=== PATIENT | male | born 1995 | race Caucasian/White ===

== ENCOUNTER 2017-10-02 21:12 | Emergency (ER) | payer MEDICAID, SELFPAY ==
[2017-10-02 21:12] VITALS: BP 128/80; PULSE 62; RESP 16; TEMP 36.6; O2SAT 99; BMI 18.9
--- NOTE | 2017-10-02 22:55 | ED.VISSUMM ---
- ER Visit Summary Date of Service: 10/02/17 Chief Complaint: Abdominal pain History of Present Illness: The patient is a 22 M who presents with right upper quadrant abdominal pain that began today. Patient states the pain started in his right upper quadrant. Patient denies any radiation of the pain. Patient describes his pain as aching. Patient states pain is worse by drinking fluids. Patient did have some nausea and vomiting today. Patient denies any hematemesis or coffee-ground emesis. Patient denies any diarrhea or constipation. Patient denies any melena or hematochezia. Patient denies any dysuria or hematuria. Physical Examination: Vital signs are stable. Patient is afebrile. Patient is in no acute distress. Oral mucosa is pink and moist. Neck is supple. Trachea is midline. There is no JVD or lymphadenopathy noted. Heart was regular rate and rhythm. Lungs are clear and equal bilaterally. Abdomen is soft. Bowel sounds are normal. There is right upper quadrant and epigastric tenderness. There is no rebound or guarding noted. Cranial nerves II through XII are intact. There are no focal motor or sensory deficits noted. The remaining physical exam is within normal limits. Test Results: CBC and conference of metabolic profile were obtained were within normal limits. Lipase was normal. Emergency Department Course and Treatment: Patient was given a dose of Zofran and IV fluids here. Patient felt better on reevaluation. Patient was given a prescription for Zofran. Patient was instructed to follow-up with his primary care physician in 5-7 days. Patient understood and was agreeable with the plan. All questions were answered. Disposition: Discharged home Impression: Right upper quadrant abdominal pain This note was generated with [employer] dictation software. It may contain incorrect words, spelling, and punctuation that were not noted in review of the chart prior to signing ED Disposition - Plan for ED Patient: Disposition: Home or Assisted Living Chief Complaint: General Illness Diagnosis: Right upper quadrant abdominal pain of unknown etiology Instructions: ED Abdominal Pain Unkn Cause Prescriptions: Ondansetron [Zofran Odt] 4 mg PO Q8H PRN PRN #10 tab PRN Reason: Nausea Referrals: Care Physician,No Primary [Primary Care Provider] -
[2017-10-02] MEDS: 0.9% Normal Saline 1,000 ML 1000 ML IV (23:22)
[2017-10-02] MEDS: Ondansetron 4 MG/2 ML Vial IV (23:22)
[2017-10-02 23:39] LABS: AST(SGOT) 29 U/L (15-37); Absolute Lymphocyte Count 2.18 X10^3/ul (0.83-4.51); Absolute Neutrophil Count 6.8 X10^3/uL (2.0-7.7); Alanine Aminotransfer ALT/SGPT 30 U/L (16-61); Albumin, Serum 4.2 g/dL (3.2-5.0); Alkaline Phosphatase 112 U/L (45-117); Anion Gap 6 (5-15); BUN 12 mg/dL (7-18); BUN/Creat Ratio 13.3 RATIO (10-20); Basophil# 0.01 X10^3/uL; Basophil% 0.1 % (0-1); Calcium,Total 9.4 mg/dL (8.5-10.1); Chloride 109 mmol/L (98-107); EST Glomerular Filtration Rate 113 mL/min (>60); Eosinophil# 0.03 X10^3/uL; Eosinophils% 0.3 % (0-5); Est Glom Filt Rate - Afr Amer 136 mL/min (>60); Estimated Creatinine Clearance 109.82 ml/min; Globulin 4.4 g/dL (2.2-4.2); Glucose 84 mg/dL (74-106); Hematocrit 42.7 % (40-54); Hemoglobin 14.9 g/dl (13.0-16.5); Lipase 134 U/L (73-393); Lymphocyte # 2.18 X10^3/ul (4.0); Lymphocyte % 22.7 % (19-41); Mean Corp Hgb Conc 34.9 g/gl (32-36); Mean Platelet Vol. 10.4 fl (6.2-12.0); Monocyte# 0.59 X10^3/uL; Monocyte% 6.1 % (0-10); Neutrophil % 70.7 % (47-70); POSITIVE COUNT NO; POSITIVE DIFFERENTIAL NO; POSITIVE MORPHOLOGY NO; Platelet Count 164 K/mm3 (150-450); Protein, Total 8.6 g/dL (6.4-8.2); RBC Distribution Width CV 13.7 % (11.6-14.6); RBC Distribution Width SD 44.2 fl (35.1-43.9); Sodium Level 140 mmol/L (136-145); White Blood Count 9.6 K/mm3 (4.4-11.0)
[2017-10-03 02:22] VITALS: BP 122/82; PULSE 78; RESP 16; O2SAT 98
== END 2017-10-03 02:23 | disposition home or self-care (01) ==
PROVIDERS: Emergency Provider Emergency Medicine
DX: R10.11 Right upper quadrant pain (principal); R11.2 Nausea with vomiting, unspecified; R51 Headache; R68.83 Chills (without fever)
CPT/HCPCS: 80053; 83690; 85025; 96361; 96374; 99285; J7030; A4216; J2405

== ENCOUNTER 2020-06-11 12:51 | Emergency (ER) | payer MEDICAID, SELFPAY ==
[2020-06-11 12:52] VITALS: BP 124/59; PULSE 85; RESP 16; TEMP 36.8; O2SAT 97; BMI 19.5
[2020-06-11] MEDS: Ondansetron 4 MG/2 ML Vial IV (13:30)
[2020-06-11] MEDS: 0.9% Normal Saline 1,000 ML 1000 ML IV (13:31)
[2020-06-11] MEDS: Ketorolac 15 MG/ML Vial IV (13:32)
[2020-06-11 13:43] LABS: Absolute Neutrophil Count 5.5 X10^3/uL (2.0-7.7); Basophil# 0.01 X10^3/uL; Basophil% 0.2 % (0-1); Eosinophil# 0.08 X10^3/uL; Eosinophils% 1.2 % (0-5); Hematocrit 43.8 % (40-54); Hemoglobin 14.5 g/dL (13.0-16.5); Lymphocyte % 9.2 % (19-41); Mean Corp Hgb Conc 33.1 g/dL (32-36); Mean Corpuscular Hgb 30.5 pg (27.0-32.0); Mean Platelet Vol. 11.2 fl (6.2-12.0); Monocyte# 0.31 X10^3/uL; Monocyte% 4.8 % (0-10); NRBC Flagged by Analyzer 0 % (0-5); Neutrophil # 5.49 X10^3/uL (2.7-7.7); Neutrophil % 84.4 % (47-70); POSITIVE DIFFERENTIAL YES; Platelet Count 118 K/mm3 (150-450); RBC Distribution Width CV 13.1 % (11.6-14.6); RBC Distribution Width SD 44.6 fl (35.1-43.9); Red Blood Count 4.76 M/mm3 (4.6-6.2); White Blood Count 6.5 K/mm3 (4.4-11.0)
[2020-06-11 13:51] LABS: Anion Gap 2 (5-15); BUN 20 mg/dL (7-18); BUN/Creat Ratio 23.3 RATIO (10-20); Calcium,Total 9.2 mg/dL (8.5-10.1); Chloride 111 mmol/L (98-107); Creatinine, Serum 0.86 mg/dL (0.70-1.30); Differential Indicated SCAN CRITERIA MET; EST Glomerular Filtration Rate 117 mL/min (>60); Est Glom Filt Rate - Afr Amer 141 mL/min (>60); Estimated Creatinine Clearance 120.17 ml/min; Glucose 97 mg/dL (74-106); Potassium 5.2 mmol/L (3.5-5.1); Sodium Level 138 mmol/L (136-145)
--- NOTE | 2020-06-11 14:15 | ED.DCSUM_ITS ---
- ER Visit Summary Date of Service: 06/11/20 Chief Complaint: Abdominal pain History of Present Illness: The patient is a 24 M with no primary care physician. Reports a 6:00 this morning he was nauseated and began vomiting. He has vomited 6 times. No blood in his emesis. He reports that he has abdominal pain that began after this. It is a dull periumbilical pain and 6 of 10 at worst and 5-10 currently. Is worsened by movement and relieved by nothing. He also reports he had 5 muscles of diarrhea. Denies any blood in stools or black tarry stools. He denies dysuria or frequency. Patient denies sick contacts. Has not been camping out of the country. No possible bad food exposure. Does not drink well water. No recent antibiotic use. Physical Examination: Vitals: Stable. Afebrile. General: Well-nourished and well-developed. Head: Normocephalic atraumatic. Neck: Supple, no lymphadenopathy. No JVD. Nontender. Cardiovascular: Regular rate and rhythm. No murmurs. Respiratory: No respiratory distress. Clear to auscultation bilaterally. Abdominal: Soft, mild periumbilical tenderness to palpation, no tenderness in the right lower quadrant, nondistended, normal bowel sounds. No guarding, rebound, or peritoneal signs. Back: Nontender. Extremities: Nontender, no edema. Skin: Normal color, no rash. Neurologic: Alert and oriented ?3. Cranial nerves II through XII are intact. Normal strength and sensation. Psych: Normal affect. Test Results: CBC shows platelets of 118, stable neutrophils 84, lymphocytes of 9. Chem-7 shows a potassium of 5.2, chloride of 111, BUN of 20. Emergency Department Course and Treatment: Patient had an IV placed. He was given a liter of normal saline. He was given Toradol and Zofran IV. On repeat exam he reports his nausea has resolved and he is not having any abdominal pain. Had a prolonged scratch the patient and his mother that at this time I do not think that this is appendicitis with the pain starting after the vomiting, but that is what you need to be worried about in someone his age. With him not having any pain now I do not think exposing the radiation of the CT is in his best interest. Treatment Plan: Patient be discharged with Zofran. Instructed to follow Dr. Nino Kinney in 1 to 2 days if not improving. I did discuss with him that if the pain seems to move to the right lower quadrant or be worsening that he should return emerge apartment for further evaluation and possible CT. Disposition: To home in improved and stable condition. Impression: 1. Vomiting/diarrhea. This note was generated with [employer] dictation software. It may contain incorrect words, spelling, and punctuation that were not noted in review of the chart prior to signing ED Disposition - Plan for ED Patient: Disposition: Home or Assisted Living Instructions: ED Vomiting and Diarrhea ... Prescriptions: Ondansetron [Zofran Odt] 4 mg PO Q8H PRN PRN #10 tablet PRN Reason: Nausea Prescription Printed Referrals: Nino iKnney III, MD [STAFF PHYSICIAN] - 1-2 Days if not improving
[2020-06-11 14:17] LABS: Differential Comment SCANNED
[2020-06-11 14:24] VITALS: BP 118/62; PULSE 78; RESP 12; O2SAT 98
== END 2020-06-11 15:05 | disposition home or self-care (01) ==
LOC: ED 13:27
PROVIDERS: Emergency Provider Emergency Medicine
DX: R11.2 Nausea with vomiting, unspecified (principal); R19.7 Diarrhea, unspecified; R10.9 Unspecified abdominal pain; R68.83 Chills (without fever)
CPT/HCPCS: 80048; 85025; 96361; 96374; 96375; 99283; J7030; A4216; J2405

== ENCOUNTER 2021-08-25 21:24 | Emergency (ER) | payer MEDICAID, SELFPAY ==
[2021-08-25 21:25] VITALS: BP 108/80; PULSE 89; RESP 15; TEMP 36.6; O2SAT 99; BMI 16.9
--- NOTE | 2021-08-25 21:47 | EX.ED.DYSGE1 ---
HPI History of Present Illness Chief Complaint: Nausea/Vomiting Informant: patient and parent Onset/Context/Timing Onset: Today Current Severity: Moderate Maximum Severity: Moderate Narrative Narrative: Patient presents secondary to nausea and vomiting after drinking too much last night. He has not been able to keep anything down today. PFSH PFSH Medical History no medical history no medical history Home Medications omeprazole 20 mg capsule,delayed release 20 mg PO DAILY #14 caps 08/25/21 [Rx Last Taken Unknown] ondansetron 4 mg disintegrating tablet 4 mg PO Q8H PRN nausea and vomiting #10 tabs 08/25/21 [Rx Last Taken Unknown] Allergy/AdvReac Type Severity Reaction Status Date / Time No Known Allergies Allergy Verified 08/25/21 21:27 Surgical History no surgical history Social History Smoking Status: Current some day smoker tobacco type: cigarettes ROS ROS ED Constitutional Constitutional ED: Denies chills or fever(s) Eyes Eyes: Denies change in vision or discharge from eye(s) ENT ENT ED: Denies discharge from eye(s), rhinorrhea or sore throat Cardiovascular Cardiovascular: Denies chest pain or palpitations Respiratory/Chest Respiratory/Chest: Denies cough or dyspnea Gastrointestinal Gastrointestinal: Reports abdominal pain, nausea and vomiting; Denies diarrhea Genitourinary Genitourinary ED: Denies difficulty urinating or dysuria Musculoskeletal Musculoskeletal: Denies back pain or extremity pain Integumentary Denies Abrasions or rash Neurologic Neurologic: Denies headache(s) or weakness Allergic/Immunologic Allergic/Immunologic ED: Denies lip swelling or urticaria EXAM Physical Exam Const Vital Signs: 08/25/21 21:25 Temperature 97.8 F Temperature Source Temporal Pulse Rate 89 Respiratory Rate 15 Blood Pressure 108/80 Blood Pressure Mean 89 Pulse Ox 99 Oxygen Delivery Method Room Air Positive well nourished and well developed General Appearance ED: well developed HEENT Reports normocephalic and head/scalp atraumatic Eyes PERRL and EOMs intact bilaterally Neck supple Chest Wall inspection of chest normal and palpation of chest normal Resp normal respiratory effort and clear to auscultation bilaterally Cardio regular rate and regular rhythm GI GI Narrative: Abdomen soft with epigastric tenderness. No guarding or rebound. Hypoactive bowel sounds. Palpation: soft Extremity normal to inspection Neuro oriented x3 and no sensory deficits noted Sensorium / Orientation: alert Motor Exam: strength 5/5 throughout Psych mental status grossly normal Skin no rashes or lesions noted MDM MDM MDM Narrative Medical decision making narrative: Patient ordered 2 L of IV fluids along with Zofran and Protonix. Lab work obtained. Lab Data Attestation: I reviewed the patient's lab results. Labs: Laboratory Results - last 24 hr 08/25/21 08/25/21 21:55 21:55 WBC 14.5 H RBC 4.62 Hgb 14.4 Hct 43.3 MCV 93.7 MCH 31.2 MCHC 33.3 RDW Std Deviation 46.5 H RDW Coeff of Lexie 13.7 Plt Count 159 MPV 11.0 Immature Gran % (Auto) 0.700 Neut % (Auto) 82.4 H Lymph % (Auto) 10.7 L [place] % (Auto) 5.9 Eos % (Auto) 0.1 Baso % (Auto) 0.2 Absolute Neuts (auto) 11.9 H Absolute Lymphs (auto) 1.54 Nucleated RBC % 0 Sodium 141 Potassium 5.1 Chloride 109 H Carbon Dioxide 13.0 L Anion Gap 19 H BUN 15 Creatinine 1.21 Estim Creat Clear Calc 75.49 Est GFR (MDRD) Af Amer 94 Est GFR (MDRD) Non-Af 78 BUN/Creatinine Ratio 12.4 Glucose 69 L Calcium 10.0 Total Bilirubin 0.60 Direct Bilirubin 0.19 AST 34 ALT 31 Alkaline Phosphatase 96 Total Protein 8.5 H Albumin 4.4 Globulin 4.1 Lipase 149 Treatment and Re-Evaluation Narrative: Lab work significant for bicarb of 13 with an anion gap of 19. Creatinine is 1.21. LFTs and lipase are normal. CBC reveals a white count of 14.5, likely acute reactive from vomiting. On repeat evaluation patient does feel improved. Because his blood glucose was 69 he was given an amp of D50. I believe he likely has a degree of alcoholic ketoacidosis from drinking and vomiting. At this time is tolerating ice chips and looks much improved. He will be given prescription for Prilosec and Zofran at home. Return instructions provided. Discharge Plan Triage Chief Complaint: Nausea/Vomiting ED Provider: Nelly Crowe Dx/Rx/DC Orders Clinical Impression: Vomiting Instructions: ED Vomiting (Adult) Prescriptions: New ondansetron 4 mg tablet,disintegrating 4 mg PO Q8H PRN (Reason: nausea and vomiting) Qty: 10 0RF omeprazole 20 mg capsule,delayed release(DR/EC) 20 mg PO DAILY Qty: 14 0RF Primary Care Provider: Rigoberto Hyatt Referrals: Rigoberto Hyatt MD [Primary Care Provider] - 3-5 Days if not improving Disposition Disposition: Home, Self Care
[2021-08-25] MEDS: Ondansetron 4 MG/2 ML Vial IV (21:58)
[2021-08-25] MEDS: 0.9% Normal Saline 1,000 ML 1000 ML IV ×2 (21:58→22:58)
[2021-08-25 22:00] LABS: Absolute Lymphocyte Count 1.54 X10^3/uL (0.83-4.51); Absolute Neutrophil Count 11.9 X10^3/uL (2.0-7.7); Basophil# 0.03 X10^3/uL; Basophil% 0.2 % (0-1); Eosinophil# 0.01 X10^3/uL; Eosinophils% 0.1 % (0-5); Hematocrit 43.3 % (40-54); Hemoglobin 14.4 g/dL (13.0-16.5); Lymphocyte # 1.54 X10^3/ul (0.83-4.51); Lymphocyte % 10.7 % (19-41); Mean Corp Hgb Conc 33.3 g/dL (32-36); Mean Corpuscular Hgb 31.2 pg (27.0-32.0); Mean Corpuscular Volume 93.7 fL (80-94); Monocyte# 0.86 X10^3/uL; Monocyte% 5.9 % (0-10); NRBC Flagged by Analyzer 0 % (0-5); Neutrophil # 11.92 X10^3/uL (2.7-7.7); Neutrophil % 82.4 % (47-70); Platelet Count 159 K/mm3 (150-450); RBC Distribution Width CV 13.7 % (11.6-14.6); RBC Distribution Width SD 46.5 fl (35.1-43.9); Red Blood Count 4.62 M/mm3 (4.6-6.2); White Blood Count 14.5 K/mm3 (4.4-11.0)
[2021-08-25 22:18] LABS: AST(SGOT) 34 U/L (15-37); Alanine Aminotransfer ALT/SGPT 31 U/L (16-61); Albumin, Serum 4.4 g/dL (3.2-5.0); Alkaline Phosphatase 96 U/L (45-117); Anion Gap 19 (5-15); BUN 15 mg/dL (7-18); BUN/Creat Ratio 12.4 RATIO (10-20); Bilirubin, Direct 0.19 mg/dL (0.00-0.30); Chloride 109 mmol/L (98-107); Creatinine, Serum 1.21 mg/dL (0.70-1.30); EST Glomerular Filtration Rate 78 mL/min (>60); Est Glom Filt Rate - Afr Amer 94 mL/min (>60); Estimated Creatinine Clearance 75.49 ml/min; Globulin 4.1 g/dL (2.2-4.2); Glucose 69 mg/dL (74-106); Lipase 149 U/L (73-393); Potassium 5.1 mmol/L (3.5-5.1); Protein, Total 8.5 g/dL (6.4-8.2); Sodium Level 141 mmol/L (136-145)
[2021-08-25] MEDS: Dextrose 50%-Water 25 GM/50 ML DISP.SYRIN IV (22:25)
[2021-08-26 00:53] VITALS: BP 112/78; PULSE 79; RESP 16; O2SAT 99
== END 2021-08-26 00:54 | disposition home or self-care (01) ==
PROVIDERS: Emergency Provider Emergency Medicine; PCP Pediatrics; Visit Provider Emergency Medicine
DX: R11.2 Nausea with vomiting, unspecified (principal); F17.210 Nicotine dependence, cigarettes, uncomplicated; R10.9 Unspecified abdominal pain
CPT/HCPCS: 80048; 80076; 83690; 85025; 96361; 96365; 96375; 99283; J7030; A4216; J2405